=== PATIENT | female | born 1945 | race Caucasian/White ===

== ENCOUNTER 2019-07-03 23:51 | Emergency (ER) | payer OTHER ==
[2019-07-04 00:32] LABS: ADD MAN DIFF? NO
[2019-07-04 00:36] LABS: BASOPHILS % 0.3 % (0.0-2.0); EOSINOPHILS # 0.2 10^3/ul (0.0-0.5); EOSINOPHILS % 1.7 % (0.0-7.0); HEMOGLOBIN 13.3 g/dl (12.0-16.0); LYMPHOCYTES # 2.4 10^3/ul (0.8-2.9); LYMPHOCYTES % 19.7 % (15.0-51.0); MEAN CORPUSCULAR HEMOGLOBIN 31.4 pg (29.0-33.0); MEAN CORPUSCULAR HGB CONC 32.4 g/dl (32.0-37.0); MEAN CORPUSCULAR VOLUME 96.7 fl (82.0-101.0); MEAN PLATELET VOLUME 10.8 fl (7.4-10.4); MONOCYTE # 0.6 10^3/ul (0.3-0.9); MONOCYTES % 4.5 % (0.0-11.0); NEUTROPHIL # 8.9 10^3/ul (1.6-7.5); NEUTROPHILS % 73.5 % (39.0-77.0); PLATELET COUNT 206 10^3/UL (140-415); RED BLOOD COUNT 4.24 10^6/ul (4.20-5.40); RED CELL DISTRIBUTION WIDTH 13.1 % (11.5-14.5)
[2019-07-04 00:36] LABS: WHITE BLOOD COUNT 12.1 10^3/ul (4.8-10.8)
[2019-07-04 00:43] LABS: ANION GAP 8 (5-13); BLOOD UREA NITROGEN 20 mg/dl (7-20); CARBON DIOXIDE 30 mmol/L (21-31); CHLORIDE 100 mmol/L (97-110); GLUCOSE 152 mg/dl (70-220); POTASSIUM 4.1 mmol/L (3.5-5.1); SODIUM 138 mmol/L (135-144)
[2019-07-04 00:44] LABS: CALCIUM 9.9 mg/dl (8.4-10.2)
[2019-07-04 00:46] LABS: INR 0.92; PROTIME 12.5 Sec (11.9-14.9)
[2019-07-04 00:47] LABS: PARTIAL THROMBOPLASTIN TIME 29.3 Sec (23.0-35.0)
[2019-07-04] MEDS: ONDANSETRON 4 MG INJ IV (01:06)
[2019-07-04] MEDS: MECLIZINE 12.5 MG TAB PO (01:06)
[2019-07-04] MEDS ORDERED: hydrALAzine 20 MG INJ IV (04:30)
[2019-07-04] MEDS ORDERED: NACL 0.9% 3 ML SYG IV (04:30)
[2019-07-04] MEDS ORDERED: MECLIZINE 12.5 MG TAB PO (04:30)
[2019-07-04] MEDS ORDERED: DOCUSATE SODIUM 100 MG CAP PO (04:30)
[2019-07-04] MEDS ORDERED: BISACODYL (EC) 5 MG TAB PO (04:30)
[2019-07-04] MEDS ORDERED: ONDANSETRON 4 MG INJ IV (04:30)
[2019-07-04] MEDS ORDERED: ACETAMINOPHEN 325 MG TAB PO (04:30)
[2019-07-04] MEDS: BENAZEPRIL 40 MG TAB PO ×2 (07:30→09:00)
[2019-07-04] MEDS: ASA/ACETAMINOPHEN/CAFF TAB PO (07:32)
[2019-07-04] MEDS ORDERED: ASA/ACETAMINOPHEN/CAFF TAB PO (09:00)
[2019-07-04] MEDS: CITALOPRAM 20 MG TAB PO (09:38)
[2019-07-04] MEDS ORDERED: PROPRANOLOL (LA) 60 MG CAP PO (21:00)
== END 2019-07-04 13:40 | disposition home or self-care (01) ==
LOC: E/R 23:51
DX: R42 Dizziness and giddiness (principal); R40.2142 Coma scale, eyes open, spontaneous, at arrival to emergency department; R40.2362 Coma scale, best motor response, obeys commands, at arrival to emergency department; R40.2252 Coma scale, best verbal response, oriented, at arrival to emergency department; I10 Essential (primary) hypertension
CPT/HCPCS: 36415; 70450; 71045; 80048; 85025; 85610; 85730; 93005; 93306; 96374; 99285-25